=== PATIENT | female | born 1950 | race Caucasian/White ===

== ENCOUNTER 2017-12-20 05:52 | Day surgery (SDC) | payer MEDICARE, BC ==
[2017-12-20] VITALS (9 sets, daily range): BP systolic 91–154; BP diastolic 54–75
[~2017-12-20] VITALS: Ht 167.6 cm; Wt 72.6 kg
[~2017-12-20 05:52] MED LIST: CENTRUM SILVER1 EAC6 PO; VITAMIN D1000 UNI1 ORAL
[2017-12-20] MEDS ORDERED: cefOXitin Sod 1 GM in D5W 55 ML IVPB ONE (07:00)
[2017-12-20] MEDS ORDERED: Ropivacaine 5mg/ml Vial 30ml INJ ONE (07:13)
[2017-12-20] MEDS ORDERED: cefOXitin 1gm Inj ONE (07:13)
[2017-12-20] MEDS ORDERED: Midazolam 2mg/2ml Inj ONE (07:30)
[2017-12-20] MEDS ORDERED: LR 1000ml ONE (07:30)
[2017-12-20] MEDS ORDERED: Ketorolac 30mg Inj ONE (07:30)
[2017-12-20] MEDS ORDERED: NS Irrig 1000ml ONE (07:30)
[2017-12-20] MEDS ORDERED: fentaNYL 100 mcg/2 mL IV ONE (07:30)
[2017-12-20] MEDS ORDERED: Sterile Water Irrig 1000ml IRRIG ONE (07:30)
[2017-12-20] MEDS ORDERED: Propofol 200mg/20ml IV ONE (07:30)
--- NOTE | 2017-12-20 07:45 | Pre-Procedure Note/Attestation ---
Pre-Procedure Note/Attestation Complete Prior to Procedure Planned Procedure: not applicable Procedure Narrative: D&C, Hysteroscopy. Indications for Procedure Pre-Operative Diagnosis: Endometrial hyperplasia Attestation I attest that I discussed the nature of the procedure; its benefits; risks and complications; and alternatives (and the risks and benefits of such alternatives ), prior to the procedure, with the patient (or the patient's legal business center representative). I attest that, if there was a reasonable possibility of needing a blood transfusion, the patient (or the patient's legal business center representative) was given the [facility] standardized written summary, pursuant to the Jef Staci Blood Safety Act ([place] Health and Safety Code # 1645, as amended). I attest that I re-evaluated the patient just prior to the surgery and that there has been no change in the patient's H&P, except as documented below: SANFORD YO Dec 20, 2017 07:45
--- NOTE | 2017-12-20 08:02 | Anethesia Preoperative Eval ---
Anesthesia Pre-op PMH/ROS General Date of Evaluation: Dec 20, 2017 Time of Evaluation: 07:12 Anesthesiologist: Whitney ASA Score: ASA 2 Mallampati Score Class I : Soft palate, uvula, fauces, pillars visible Class II: Soft palate, uvula, fauces visible Class III: Soft palate, base of uvula visible Class IV: Only hard plate visible Mallampati Classification: Class II Surgeon: Carla Diagnosis: Endometrial dysplasia Surgical Procedure: D&C Hysteroscopy Anesthesia History: none Family History: no anesthesia problems Allergies: Coded Allergies: No Known Allergies (Unverified , 12/18/17) Medications: see eMAR Past Medical History Cardiovascular: Denies: HTN, CAD, TN, valve dz, arrhythmia, other Pulmonary: Denies: asthma, COPD, KAM, other Gastrointestinal/Genitourinary: Reports: GERD - mild, Denies: CRI, ESRD, other Neurologic/Psychiatric: Denies: dementia, CVA, depression/anxiety, TIA, other Endocrine: Denies: DM, hypothyroidism, steroids, other HEENT: Denies: cataract (L), cataract (R), glaucoma, SOBOBA (L), SOBOBA (R), other Hematology/Immune: Denies: anemia, DVT, bleeding disorder, other Musculoskeletal/Integumentary: Denies: OA, RA, DJD, DDD, edema, other PMH Narrative: as above PSxH Narrative: L breast lumpectomy Anesthesia Pre-op Phys. Exam Physician Exam Last Vital Signs Date Time Temp Pulse Resp B/P (MAP) Pulse Ox O2 Delivery O2 Flow Rate FiO2 12/20/17 06:19 98.5 96 20 154/75 99 Room Air Constitutional: NAD Neurologic: CN 2-12 intact Cardiovascular: RRR, no M/R/G Respiratory: CTA Gastrointestinal: S/NT/ND Airway Exam Mallampati Score: Class II MO: full Neck: flexible ROM: full Teeth: intact Dentures: no upper, no lower Anesthesia Pre-op A/P Labs see chart Studies Pre-op Studies: EKG - NSR Risk Assessment & Plan Assessment: ASA 2 Plan: GA with LMA Status Change Before Surgery: No Pre-Antibiotics Drug: Cefoxitin 1 gr Given Within 1 Hr of Incision: Yes Time Given: 07:50 REAGAN CARRINGTON M.D. Dec 20, 2017 08:02
[2017-12-20] MEDS ORDERED: LR 1000ml 1,000 ML IVLG SCH (08:03)
[2017-12-20] MEDS ORDERED: DiphenhydrAMINE 50mg/ml Inj IVP PRN (08:15)
[2017-12-20] MEDS ORDERED: Hydromorphone 0.5mg/0.5ml inj IVP PRN (08:15)
[2017-12-20] MEDS ORDERED: Ketorolac 30mg Inj IV PRN (08:15)
--- NOTE | 2017-12-20 08:34 | Brief Operative Note ---
Immediate Post Operative Note Operative Note Pre-op Diagnosis: Endometrial hyperplasia Procedure: D&C, Hysteroscopy, multiple polypectomy Post-op Diagnosis: multiple endometrial polyps Post-op Diagnosis: same as pre-op plus - endometrial polyps Findings: consistent w/pre-op dx studies Surgeon: Sanford Yo MD Anesthesiologist: John Olson MD Anesthesia: general Specimen: yes - multiple polyps, ECC, EMC Complications: none Condition: stable Fluids: Normal Saline Estimated Blood Loss: none Implant(s) used?: No SANFORD YO Dec 20, 2017 08:34
[2017-12-20] MEDS ORDERED: HYDROmorphone 1mg/ml Carpuject SUBQ PRN (08:45)
[2017-12-20] MEDS ORDERED: Tylenol #3 tab (300mg/30mg) ORAL PRN (08:45)
[2017-12-20] MEDS ORDERED: D5 1/2NS 1,000 ML IV SCH (08:45)
[2017-12-20] MEDS ORDERED: Norco 5mg/325mg tab ORAL PRN (08:45)
--- NOTE | 2017-12-20 08:47 | Immediate Post-Op Evaluation ---
Immediate Post-Op Evalulation Immediate Post-Op Evalulation Procedure: D&C Hysterroscory Polypectomy Date of Evaluation: Dec 20, 2017 Time of Evaluation: 08:46 IV Fluids: 800 Blood Products: none Estimated Blood Loss: min Urinary Output: none Blood Pressure Systolic: 104 Blood Pressure Diastolic: 56 Pulse Rate: 80 Respiratory Rate: 20 O2 Sat by Pulse Oximetry: 99 Temperature (Fahrenheit): 97.8 Pain Score (1-10): 1 Nausea: No Vomiting: No Complications none Patient Status: reacts, patent, none Hydration Status: adequate REAGAN CARRINGTON M.D. Dec 20, 2017 08:47
--- NOTE | 2017-12-20 09:18 | 48 Hour Post Anesthesia Eval ---
Post Anesthesia Evaluation Procedure: D&C Hysterroscory Polypectomy Date of Evaluation: Dec 20, 2017 Time of Evaluation: 09:16 Blood Pressure Systolic: 98 0: 52 Pulse Rate: 74 Respiratory Rate: 20 Temperature (Fahrenheit): 97.6 O2 Sat by Pulse Oximetry: 98 Airway: patent Nausea: No Vomiting: No Pain Intensity: 2 Hydration Status: adequate Cardiopulmonary Status: stable Mental Status/LOC: patient returned to baseline Follow-up Care/Observations: n/a Post-Anesthesia Complications: none Follow-up care needed: ready to discharge REAGAN CARRINGTON M.D. Dec 20, 2017 09:18
--- NOTE | 2017-12-20 17:00 | Operative Note - Dictated ---
DATE OF OPERATION: 12/20/2017 PREOPERATIVE DIAGNOSIS: Endometrial hyperplasia. POSTOPERATIVE DIAGNOSIS: Endometrial hyperplasia plus multiple endometrial polyps and a singular submucosal fibroids. PROCEDURE PERFORMED: Dilatation and curettage, video hysteroscopy, and multiple polypectomy. SURGEON: Alex Aguirre M.D. ANESTHESIOLOGIST: Wander Olson M.D. ANESTHESIA TYPE: General. ESTIMATED BLOOD LOSS: Minimal. PROCEDURE IN DETAIL: After all the appropriate consents were signed, the patient was brought to the operating room and placed on the table in supine position. General anesthesia was introduced without complication. The patient was then placed in a dorsal lithotomy position. Perineum, vagina, and abdomen were prepped and draped in the usual fashion for the procedure. The patient was then examined under anesthesia. Uterus appeared to be anterior flexed and very difficult to access through atrophic vagina. At this time, the cervix was identified, grasped, and the cervix was dilated to approximately 7 mm. The cervix was then entered with video hysteroscope and the cavity was visualized. The cavity revealed three polypoid processes with two of them extending from the posterior uterus and one from the anterior uterus. There was also a probable fibroid in floor of the uterus posteriorly, which was small and fibrotic. At this time, under direct visualization, the polyps were grasped and removed one after another to fully remove all the polyps from the endometrial cavity. The endometrial cavity was well visualized after all the polyps were removed and no additional lesions were identified. At this time, endocervical curettage was performed followed by endometrial curettage. All the specimen was submitted to pathology for evaluation. The patient was then placed in the supine position, awakened from general anesthesia, and transferred to the recovery room in excellent condition. Alex Aguirre M.D. DR: GRETEL JOB#: [id number] CC:
== END 2017-12-20 10:55 | disposition home or self-care (01) ==
LOC: SUR 05:52
DX: N85.00 Endometrial hyperplasia, unspecified (principal); N84.0 Polyp of corpus uteri; D25.9 Leiomyoma of uterus, unspecified; Z80.3 Family history of malignant neoplasm of breast; K21.9 Gastro-esophageal reflux disease without esophagitis
CPT/HCPCS: 58558; J0694; J1885; J2250; J2704; J3010; J7120; 94003; 94150

== ENCOUNTER 2018-04-04 07:30 | Inpatient (IN) | payer MEDICARE, BC ==
[~2018-04-04] VITALS: Ht 170.2 cm; Wt 72.6 kg
[2018-04-11] VITALS (8 sets, daily range): BP systolic 97–142; BP diastolic 50–75
[2018-04-11] MEDS ORDERED: cefOXitin Sod 2 GM in D5W 110 ML IVPB ONE (07:00)
[2018-04-11] MEDS ORDERED: Ropivacaine 5mg/ml Vial 30ml INJ ONE (07:11)
[2018-04-11] MEDS ORDERED: Midazolam 2mg/2ml Inj ONE (07:26)
[2018-04-11] MEDS ORDERED: fentaNYL 100 mcg/2 mL IV ONE (07:27)
[2018-04-11] MEDS ORDERED: Lidocaine 1% MPF 10mg/ml 5ml ONE (07:27)
[2018-04-11] MEDS ORDERED: Propofol 200mg/20ml IV ONE (07:27)
[2018-04-11] MEDS ORDERED: Zemuron 50mg/5ml Inj IV ONE (07:30)
--- NOTE | 2018-04-11 07:41 | Pre-Procedure Note/Attestation ---
Pre-Procedure Note/Attestation Complete Prior to Procedure Planned Procedure: bilateral Procedure Narrative: Total abdominal hysterectomy, bilateral Salpingo-oophorectomy Indications for Procedure Pre-Operative Diagnosis: Endometrial hyperplasia Attestation I attest that I discussed the nature of the procedure; its benefits; risks and complications; and alternatives (and the risks and benefits of such alternatives ), prior to the procedure, with the patient (or the patient's legal sales representative uniforms). I attest that, if there was a reasonable possibility of needing a blood transfusion, the patient (or the patient's legal sales representative uniforms) was given the [facility] standardized written summary, pursuant to the Jef Staci Blood Safety Act ([place] Health and Safety Code # 1645, as amended). I attest that I re-evaluated the patient just prior to the surgery and that there has been no change in the patient's H&P, except as documented below:NONE SANFORD YO April 11, 2018 07:41
[2018-04-11] MEDS ORDERED: NS Irrig 1000ml IRRIG ONE (08:00)
--- NOTE | 2018-04-11 08:10 | Anethesia Preoperative Eval ---
Anesthesia Pre-op PMH/ROS General Date of Evaluation: April 11, 2018 Time of Evaluation: 07:00 ASA Score: ASA 2 Mallampati Score Class I : Soft palate, uvula, fauces, pillars visible Class II: Soft palate, uvula, fauces visible Class III: Soft palate, base of uvula visible Class IV: Only hard plate visible Mallampati Classification: Class II Allergies: Coded Allergies: No Known Allergies (Unverified , 04/10/18) Anesthesia Pre-op Phys. Exam Physician Exam Last Vital Signs Date Time Temp Pulse Resp B/P (MAP) Pulse Ox O2 Delivery O2 Flow Rate FiO2 04/11/18 06:51 98.2 86 20 142/75 97 Room Air 98.2 Airway Exam Mallampati Score: Class II Ashleigh Nathan MD April 11, 2018 08:10
[2018-04-11] MEDS ORDERED: fentaNYL 100 mcg/2 mL IV PRN (08:15)
[2018-04-11] MEDS ORDERED: Hydromorphone 0.5mg/0.5ml inj IVP PRN (08:15)
[2018-04-11] MEDS ORDERED: Ketorolac 30mg Inj IV PRN ×2 (08:15→11:15)
[2018-04-11] MEDS ORDERED: Ketorolac 30mg Inj ONE (09:21)
[2018-04-11] MEDS ORDERED: Dexamethasone 4mg/ml vial ONE (09:21)
[2018-04-11] MEDS ORDERED: Morphine Sulfate 10mg/ml Inj ONE (09:36)
--- NOTE | 2018-04-11 09:49 | Immediate Post-Op Evaluation ---
Immediate Post-Op Evalulation Immediate Post-Op Evalulation Procedure: TAHBSO Date of Evaluation: April 11, 2018 Time of Evaluation: 09:49 Nausea: No Vomiting: No Ashleigh Nathan MD April 11, 2018 09:49
--- NOTE | 2018-04-11 10:42 | 48 Hour Post Anesthesia Eval ---
Post Anesthesia Evaluation Procedure: TAHBSO Date of Evaluation: April 11, 2018 Time of Evaluation: 10:42 Nausea: No Vomiting: No Ashleigh Nathan MD April 11, 2018 10:42
[2018-04-11] MEDS ORDERED: PCA Education Pamphlet MISC ONE ×2 (11:15→18:00)
[2018-04-11] MEDS ORDERED: Rate Change PCA 1 Each MISC PRN ×2 (11:15→13:45)
[2018-04-11] MEDS ORDERED: Milk of Magnesia 30ml Ud ORAL PRN (11:15)
--- NOTE | 2018-04-11 11:30 | Brief Operative Note ---
Immediate Post Operative Note Operative Note Pre-op Diagnosis: Endometrial hyperplasia, Procedure: PAUL, BSO, Lysis of pelvic adhesions, Enterolysis Post-op Diagnosis: same as pre-op - Bowel adhesions Surgeon: Sanford Yo Oil Exploration Engineer: Toya Martínez Anesthesia: general Specimen: yes - Uterus, Cervis, Tubes, Ovaries Complications: none Condition: stable Fluids: D5LR @75 cc/hr Estimated Blood Loss: minimal - under 100 cc Drains: none Implant(s) used?: No SANFORD YO April 11, 2018 11:30
[2018-04-11] MEDS ORDERED: Naloxone 2 MG in D5W 500ml 498 ML IV SCH (12:30)
[2018-04-11] MEDS ORDERED: Morphine Sulfate 2mg/ml Inj IV PRN (13:45)
[2018-04-11] MEDS ORDERED: Morphine Sulfate 4mg/ml Inj SUBQ PRN (13:45)
[2018-04-11] MEDS ORDERED: PCA Morphine 1mg/ml 30 ML IV PRN (14:00)
[2018-04-11] MEDS: D5 1/2NS w/KCl 20mEq 1,000 ML IV SCH (15:23)
[2018-04-11] MEDS ORDERED: PCA shift volume MISC SCH (19:00)
[2018-04-11] MEDS: PCA shift volume MISC SCH (19:16)
--- NOTE | 2018-04-11 19:45 | Operative Note - Dictated ---
DATE OF OPERATION: 04/11/2018 PREOPERATIVE DIAGNOSIS: Endometrial hyperplasia. POSTOPERATIVE DIAGNOSIS: Endometrial hyperplasia and small uterine fibroid. PROCEDURE PERFORMED: Total abdominal hysterectomy with bilateral salpingo-oophorectomy. SURGEON: Alex Aguirre M.D. BREAKER UP MACHINE OPERATOR: Toya Martínez M.D. ANESTHESIOLOGIST: Dr. Ashleigh Nathan. ANESTHESIA: General. ESTIMATED BLOOD LOSS: 100 mL. PROCEDURE IN DETAIL: After all the appropriate consents were signed, the patient was brought to the operating room, placed on table in supine position. General endotracheal anesthesia was induced without complication. The patient was then placed in a dorsal lithotomy position. Perineum, vagina and abdomen prepped and draped in the usual fashion for the procedure. The patient's Gibson was placed and the patient was placed in the supine position where the Pfannenstiel incision was made, was carried through subcutaneous tissue and the fascia was incised. The fascial incision was extended bilaterally to reveal the rectus muscle. The rectus muscle was parted in the midline and the peritoneum was entered sharply. At this time, the procedure continued with reflecting the rectus muscle both inferiorly and superiorly away from rectus fascia. At this time, the uterus was identified, retractor was placed and the procedure continued with grasping the fibroid and retracting the uterus anteriorly, as there were some adhesions along the bladder flap. These were adhesiolysed and the bladder flap was started. At this time, the round ligaments were clamped, first on the left and then on the right and both were transected and suture ligated. The broad ligament was entered, incised. The anterior leaf of the broad ligament was incised first on the left and then on the right fully exposing the bladder flap. The bladder flap was developed further to reveal the cervix. At this time, the left adnexa was evaluated. It was adhesed to the pelvic sidewall into the uterus. Multiple adhesions were also extended to the bowel. The intestinal adhesions were lysed followed by omental adhesions, followed by adhesions to the pelvic sidewall. After this was completed, after approximately 20 to 25 minutes of dissection, the left tube and ovary were free. The broad ligament was now entered and a Franklin clamp was placed behind the adnexa and to clamp the infundibulopelvic ligament. The was clamped, cut and suture ligated. The same procedure was repeated on the right side where there was no need for adhesiolysis. The procedure then continued with video. At this time, the uterine vessels were skeletonized bilaterally and Franklin clamps were placed bilaterally to clamp the uterine vessels. These were cut and suture ligated bilaterally. Complete hemostasis were found at the both dissection sites. At this time, straight Chris's were used to clamp, cut and suture ligate cardinal ligaments bilaterally until the vaginal area was reached. Once the vagina was reached, the curved Franklin clamps were placed and scissors were used to fully excise the uterus with the cervix away from the vaginal vault. Vagina was closed using an 0 Vicryl suture in a running fashion. The uterosacral ligaments were tied and suture ligated. Complete hemostasis was now achieved. The ureters were identified both on the left and on the right. The abdomen was irrigated and the debris and blood were suctioned. Again, complete hemostasis was noted. Peritoneum was closed using running suture. The muscle was reapproximated and the fascia was closed using 0 Vicryl suture. The subcutaneous tissue was closed and the skin was closed using subcuticular suture. The patient was placed back in the supine position, awakened from general anesthesia, and transferred to the recovery room in excellent condition. She tolerated the procedure very well. Alex Aguirre M.D. DR: FLORENTINO JOB#: [id number] CC:
[2018-04-12] VITALS: BP 124/71
[2018-04-12] MEDS: D5 1/2NS w/KCl 20mEq 1,000 ML IV SCH (02:27)
[2018-04-12 04:00] VITALS: BP 119/75
[2018-04-12] MEDS: PCA shift volume MISC SCH (07:00)
[2018-04-12 08:00] VITALS: BP 143/78
[2018-04-12 08:06] LABS: BASOPHILS % (AUTO) 0.9 % (0.0-2.0); EOSINOPHILS % (AUTO) 0.1 % (0.0-3.0); HEMATOCRIT 36.4 % (37.0-47.0); HEMOGLOBIN 12.1 G/DL (12.0-16.0); LYMPHOCYTES % (AUTO) 13.3 % (20.0-45.0); MEAN CORPUSCULAR VOLUME 86 FL (80-99); MONOCYTES % (AUTO) 10.3 % (1.0-10.0); NEUTROPHILS % (AUTO) 75.5 % (45.0-75.0); PLATELET COUNT 195 K/UL (150-450); RED BLOOD COUNT 4.24 M/UL (4.20-5.40); RED CELL DISTRIBUTION WIDTH 12.6 % (11.6-14.8); WHITE BLOOD COUNT 11.7 K/UL (4.8-10.8)
[2018-04-12 08:36] LABS: ANION GAP 8 mmol/L (5-15); BLOOD UREA NITROGEN 8 mg/dL (7-18); CALCIUM 8.7 MG/DL (8.5-10.1); CARBON DIOXIDE 26 MMOL/L (21-32); CHLORIDE 107 MMOL/L (98-107); CREATININE 0.8 MG/DL (0.55-1.30); PHOSPHORUS 2.6 MG/DL (2.5-4.9); POTASSIUM 4.3 MMOL/L (3.5-5.1); SODIUM 141 MMOL/L (136-145)
[2018-04-12 11:57] VITALS: BP 136/68
--- NOTE | 2018-04-12 14:35 | General Progress Note ---
Progress Note Progress Note POD#1 s/p PALU, BSO afebrile, ambulating well, good pain control with Toradol Incision dry, clean Dressing removed will continue Toradol D/C BANQUET SET UP PERSON Consider d/c to home tomorrow SANFORD YO April 12, 2018 14:35
[2018-04-12 16:00] VITALS: BP 142/71
[2018-04-12 20:00] VITALS: BP 139/64
[2018-04-13] VITALS: BP 128/68
[2018-04-13 04:00] VITALS: BP 118/69
[2018-04-13 08:04] VITALS: BP 129/68
--- NOTE | 2018-04-14 06:58 | Discharge Summary ---
Discharge Summary Hospital Course Date of Admission April 11, 2018 at 05:51 Date of Discharge April 13, 2018 at 13:19 Admitting Diagnosis uterine fibroids Reason for Hospitalization: elective surgery HPI Tegan Clinton is a 68 year old female who was admitted on April 11, 2018 at 05: 51 for Uterine Fibroid Procedures s/p 04/11/[address] Perla Aguirre Total abdominal hysterectomy with bilateral salpingo-oophorectomy. Hospital Course Course of recovery uneventful Initially nothing by mouth IV fluids Pain control with INTERNAL SALESPERSON Incentive spirometry while in the bed, encouraged ambulation when bowel function returned started on clear liquid diet and advanced as tolerated antiemetics on board as needed, tolerated diet INTERNAL SALESPERSON discontinued, changed to oral analgesic incision clean dry and intact Pain controlled Voided freely Ambulated Discharge instruction provided Patient discharged home, follow-up with surgeon as advised FINAL DIAGNOSIS uterine fibroids s/p total abdominal hysterectomy with bilateral salpingo-oophorectomy. Discharge Medications Continued Medications: Cholecalciferol (Vitamin D3)* (Vitamin D*) 1,000 Unit Tablet 2000 UNITS ORAL DAILY, #30 TAB 0 Refills (This prescription has been renewed) Multivits-Min/Iron/FA/Lutein (Centrum Silver Women Tablet) 1 Each Tablet 1 EACH PO DA, TAB (This prescription has been renewed) Discharge Condition Upon Discharge: stable Discharge Disposition Patient was discharged to Home () Discharge Instructions Discharge Instructions Special Instructions I have been assigned to complete a D/C Summary on this account. I was not involved in the patient management Rosy Holley NP April 14, 2018 06:58
== END 2018-04-13 13:19 | disposition home or self-care (01) | DRG 743 ==
LOC: SDSOVERFLO 04-11 05:51 → 3E 04-11 11:29
PROC: 0UT70ZZ Resection of Bilateral Fallopian Tubes, Open Approach (ICD-10-PCS; principal; 2018-04-11 07:30)
PROC: 0UT90ZZ Resection of Uterus, Open Approach (ICD-10-PCS; principal; 2018-04-11 07:30)
PROC: 0UT20ZZ Resection of Bilateral Ovaries, Open Approach (ICD-10-PCS; principal; 2018-04-11 07:30)
DX: D25.9 Leiomyoma of uterus, unspecified (principal); N85.00 Endometrial hyperplasia, unspecified
CPT/HCPCS: 36415; 80048; 82330; 83735; 84100; 85025; 86850; 86900; 86901; 87081; J2250; J2405